=== PATIENT | female | born 1995 | race Two or more races ===

== ENCOUNTER 2020-08-23 21:19 | Emergency (ER) | payer MEDICAID ==
[~2020-08-23] VITALS: Ht 162.6 cm; Wt 59.0 kg
[2020-08-23 22:12] VITALS: BP 118/76
== END 2020-08-23 22:43 | disposition home or self-care (01) ==
LOC: ER 21:19
DX: J02.9 Acute pharyngitis, unspecified (principal); Z91.013 Allergy to seafood
CPT/HCPCS: 81025; 99282

== ENCOUNTER 2022-04-25 10:57 | Emergency (ER) | payer MEDICAID ==
[~2022-04-25] VITALS: Ht 167.6 cm; Wt 73.0 kg
[2022-04-25] MEDS ORDERED: IBUPROFEN 400MG TABLET PO ONE (11:45)
[2022-04-25] MEDS ORDERED: LIDOCAINE 5% PATCH TOP SCH (11:45)
[2022-04-25] MEDS ORDERED: ACETAMINOPHEN 325MG TABLET PO ONE (11:45)
[2022-04-25] MEDS ORDERED: METHOCARBAMOL 750MG TABLET PO SCH (11:45)
[2022-04-25] MEDS ORDERED: TOPUD PO (12:48)
[2022-04-25] MEDS ORDERED: IBUP-2028 MT (12:51)
[2022-04-25] MEDS ORDERED: LIDO1ADH23 TP (12:51)
[2022-04-25] MEDS ORDERED: METH-653 MT (12:51)
[2022-04-25 13:26] VITALS: BP 110/63
== END 2022-04-25 13:32 | disposition home or self-care (01) ==
LOC: ER 10:57
DX: M54.9 Dorsalgia, unspecified (principal); V43.62XA Car passenger injured in collision with other type car in traffic accident, initial encounter; Y93.89 Activity, other specified; Y92.410 Unspecified street and highway as the place of occurrence of the external cause; Z97.5 Presence of (intrauterine) contraceptive device; Z91.013 Allergy to seafood
CPT/HCPCS: 72070; 72100; 81025; 99284